=== PATIENT | female | born 1955 | race Caucasian/White ===

== ENCOUNTER 2023-10-20 12:51 | Emergency (ER) | payer OTHER, MEDICAID ==
[~2023-10-20] VITALS: Ht 160 cm; Wt 54.4 kg
[2023-10-20 14:37] LABS: EOSINOPHILS # (AUTO) 0.1 K/uL (0.0-0.4); HEMATOCRIT 30.1 % (36-48); HEMOGLOBIN 10.1 g/dL (12.0-16.0); LYMPHOCYTES # (AUTO) 0.5 K/uL (1.0-5.5); LYMPHOCYTES % (AUTO) 12.7 % (20.5-51.5); MEAN CORPUSCULAR HEMOGLOBIN 34 pg (27-31); MEAN CORPUSCULAR HGB CONC 33 % (32-36); MEAN CORPUSCULAR VOLUME 101 fL (79.0-98.0); MONOCYTES # (AUTO) 0.4 K/uL (0.0-1.0); MONOCYTES % (AUTO) 9.8 % (1.7-9.3); NEUTROPHILS % (AUTO) 74.5 % (40.0-70.0); PLATELET COUNT (AUTO) 225 K/uL (130-430); RED BLOOD CELL COUNT(AUTO) 2.98 MIL/uL (4.2-6.2); RED CELL DISTRIBUTION WIDTH 16.3 % (9.0-15.0)
[2023-10-20 14:56] LABS: INR 1.1 (0.8-1.2); PROTHROMBIN TIME 11.6 SECS (9.5-12.5)
[2023-10-20 15:04] LABS: ALANINE AMINOTRANSFERASE 8 U/L (12-78); ALBUMIN 2.3 g/dL (3.4-4.8); ANION GAP 3 (5-15); ASPARTATE AMINOTRANSFERASE 17 U/L (10-37); BILIRUBIN,DIRECT 0.4 mg/dL (0.0-0.3); CALCIUM 7.9 mg/dL (8.4-11.0); CARBON DIOXIDE 36 mmol/L (23-29); CHLORIDE 97 mmol/L (98-107); CREATININE 2.47 mg/dL (0.55-1.30); GFR AFRICAN AMERICAN 25 mL/min (>90); GFR NON AFRICAN-AMERICAN 21 mL/min (>90); GLUCOSE 116 mg/dL (74-106); POTASSIUM 3.2 mmol/L (3.5-5.1); SODIUM SERUM 136 mmol/L (136-145); TOTAL BILIRUBIN 0.7 mg/dL (0.0-1.0); TOTAL PROTEIN, SERUM 5.9 g/dL (6.4-8.3); UREA NITROGEN, BLOOD 9 mg/dL (8-21)
[2023-10-20] MEDS ORDERED: PANTOPRAZOLE SODIUM 40 MG/VIAL (PROTONIX) IVP ONE (15:15)
[2023-10-20 15:20] VITALS: BP_SYST 162; PULSE 85; RESP 18; TEMP 97.9; O2SAT 95
== END 2023-10-20 15:27 | disposition home or self-care (01) ==
LOC: SED 12:51
DX: R60.0 Localized edema (principal); I10 Essential (primary) hypertension; E11.9 Type 2 diabetes mellitus without complications; I48.91 Unspecified atrial fibrillation
CPT/HCPCS: 36415; 71045; 80048; 80076; 83880; 84484; 85025; 85610-TC; 85730-TC; 93005; 99285

== ENCOUNTER 2024-01-20 12:16 | Inpatient (IN) | payer OTHER, MEDICAID ==
[~2024-01-20] VITALS: Ht 170.2 cm; Wt 69.4 kg
[2024-01-20 12:20] VITALS: BP_SYST 117; PULSE 65; RESP 19; TEMP 98; O2SAT 98
[2024-01-20 12:49] LABS: BASOPHILS % (AUTO) 0.2 % (0.0-2.0); EOSINOPHILS % (AUTO) 0.5 % (0.0-4.0); HEMATOCRIT 22.4 % (36-48); HEMOGLOBIN 7.7 g/dL (12.0-16.0); LYMPHOCYTES # (AUTO) 0.2 K/uL (1.0-5.5); LYMPHOCYTES % (AUTO) 2.9 % (20.5-51.5); MEAN CORPUSCULAR HEMOGLOBIN 36 pg (27-31); MEAN CORPUSCULAR HGB CONC 35 % (32-36); MEAN CORPUSCULAR VOLUME 104 fL (79.0-98.0); MONOCYTES # (AUTO) 0.5 K/uL (0.0-1.0); NEUTROPHILS # (AUTO) 6.4 K/uL (1.8-7.7); NEUTROPHILS % (AUTO) 89.4 % (40.0-70.0); PLATELET COUNT (AUTO) 177 K/uL (130-430); RED BLOOD CELL COUNT(AUTO) 2.16 MIL/uL (4.2-6.2); RED CELL DISTRIBUTION WIDTH 19.7 % (9.0-15.0); WHITE BLOOD COUNT (AUTO) 7.1 K/uL (4.8-10.8)
[2024-01-20 13:05] LABS: ANION GAP 4 (5-15); CALCIUM 7.4 mg/dL (8.4-11.0); CARBON DIOXIDE 33 mmol/L (23-29); CHLORIDE 93 mmol/L (98-107); GFR AFRICAN AMERICAN 23 mL/min (>90); GLUCOSE 82 mg/dL (74-106); POTASSIUM 3.5 mmol/L (3.5-5.1); SODIUM SERUM 130 mmol/L (136-145); UREA NITROGEN, BLOOD 28 mg/dL (8-21)
[2024-01-20 13:09] LABS: GFR NON AFRICAN-AMERICAN 19 mL/min (>90)
[2024-01-20] MEDS: NITROGLYCERIN 1 INCH (GM) OINT. TP ONE (13:45)
[2024-01-20] MEDS ORDERED: LEVO150C4 PO (13:46)
[2024-01-20] MEDS ORDERED: OMEP-268 PO (13:46)
[2024-01-20] MEDS ORDERED: APIX2.5T PO (13:46)
[2024-01-20] MEDS ORDERED: PRO40 PO (13:46)
[2024-01-20] MEDS ORDERED: FURO40TA5 PO (13:46)
[2024-01-20] MEDS ORDERED: CALC667T8 PO (13:46)
[2024-01-20] MEDS ORDERED: DRISDOL PO (13:46)
[2024-01-20] MEDS ORDERED: FOLI0.8T2 PO (13:46)
[2024-01-20] MEDS ORDERED: LOSA-415 PO (13:46)
[2024-01-20] MEDS ORDERED: ALBMDI INH (13:46)
[2024-01-20] MEDS: FUROSEMIDE 40 MG/4 ML VIAL IVP ONE (13:46)
[2024-01-20] MEDS ORDERED: [UNRECOGNIZED DRUG - CODE] PO (13:46)
[2024-01-20] MEDS ORDERED: AZAT50TA18 PO (13:46)
[2024-01-20] MEDS ORDERED: DOCU-159 PO (13:46)
[2024-01-20] MEDS ORDERED: CLON0.1T PO (13:47)
[2024-01-20] MEDS ORDERED: HEPA100D33 IV ×2 (13:47)
[2024-01-20] MEDS ORDERED: EPOE3000 IV (13:47)
[2024-01-20] MEDS ORDERED: MOME13HF8 INH (13:47)
[2024-01-20] MEDS ORDERED: HYDR-500 PO (13:47)
[2024-01-20] MEDS ORDERED: PIPERACILLIN/TAZOBACTAM 3.375 GM/VIAL (ZOSYN) IV ONE (14:27)
[2024-01-20] MEDS: PIPERACILLIN/TAZO 3.375 GM in NS 50 ML IV ONE (15:29)
[2024-01-20] MEDS: cefTRIAXone 1 GM IVPB PREMIX 50 ML IV ONE (16:12)
[2024-01-20 17:33] VITALS: BP_SYST 133; PULSE 61; RESP 18; TEMP 98
[2024-01-20] MEDS ORDERED: cloNIDine HCL 0.1 MG TABLET PO PRN (19:15)
[2024-01-20 20:00] VITALS: BP_SYST 137; PULSE 64; RESP 16; TEMP 97.3; O2SAT 98
[2024-01-20] MEDS: DOCUSATE SODIUM 100 MG CAPSULE PO SCH (21:44)
[2024-01-20] MEDS: ACETAMINOPHEN 325 MG TABLET PO PRN (22:42)
[2024-01-21] VITALS (7 sets, daily range): BP systolic 130–158; PULSE 61–97; RESP 15–20; TEMP 97–97.7; O2SAT 96–100
[2024-01-21 05:37] LABS: BASOPHILS % (AUTO) 0.3 % (0.0-2.0); EOSINOPHILS % (AUTO) 0.3 % (0.0-4.0); HEMATOCRIT 26.6 % (36-48); HEMOGLOBIN 9.3 g/dL (12.0-16.0); LYMPHOCYTES # (AUTO) 0.3 K/uL (1.0-5.5); LYMPHOCYTES % (AUTO) 4.4 % (20.5-51.5); MEAN CORPUSCULAR HEMOGLOBIN 34 pg (27-31); MEAN CORPUSCULAR HGB CONC 35 % (32-36); MEAN CORPUSCULAR VOLUME 96 fL (79.0-98.0); MONOCYTES # (AUTO) 0.6 K/uL (0.0-1.0); MONOCYTES % (AUTO) 8.9 % (1.7-9.3); NEUTROPHILS % (AUTO) 86.1 % (40.0-70.0); PLATELET COUNT (AUTO) 165 K/uL (130-430); RED BLOOD CELL COUNT(AUTO) 2.77 MIL/uL (4.2-6.2); RED CELL DISTRIBUTION WIDTH 23.8 % (9.0-15.0); WHITE BLOOD COUNT (AUTO) 6.9 K/uL (4.8-10.8)
[2024-01-21 05:48] LABS: CALCIUM 7.3 mg/dL (8.4-11.0); CREATININE 2.03 mg/dL (0.55-1.30); POTASSIUM 3.4 mmol/L (3.5-5.1)
[2024-01-21 05:54] LABS: ALBUMIN 1.5 g/dL (3.4-4.8); PHOSPHORUS 1.6 mg/dL (2.7-4.5); TOTAL BILIRUBIN 1.2 mg/dL (0.0-1.0); TOTAL PROTEIN, SERUM 5.5 g/dL (6.4-8.3)
[2024-01-21] MEDS: LEVOTHYROXINE SODIUM 0.15 MG TABLET PO SCH (07:10)
[2024-01-21] MEDS: LOSARTAN POTASSIUM 50 MG TABLET (COZAAR) PO SCH (08:35)
[2024-01-21] MEDS: PANTOPRAZOLE SODIUM 40 MG TAB PO SCH (08:36)
[2024-01-21] MEDS: CALCIUM ACETATE 667 MG CAP PO SCH ×2 (08:37→17:47)
[2024-01-21] MEDS: FUROSEMIDE 40 MG TABLET PO SCH (08:37)
[2024-01-21] MEDS: NEPHROVITE, (FOLIC ACID/VITAMIN B COMP W-C 1 TAB) PO SCH (08:38)
[2024-01-21] MEDS: cefTRIAXone 1 GM IVPB PREMIX 50 ML IV SCH (08:39)
[2024-01-21] MEDS: APIXABAN 2.5 MG TABLET PO SCH (08:46)
[2024-01-21] MEDS ORDERED: NON-FORMULARY MEDICATION (Omeprazole 1 CAP) PO SCH (09:00)
[2024-01-21] MEDS: ONDANSETRON HCL 4 MG/2 ML VIAL IM PRN (11:23)
[2024-01-21] MEDS: LABETALOL HCL 100 MG TABLET PO SCH (15:25)
[2024-01-21] MEDS: LINEZOLID 300 ML IV SCH (21:21)
[2024-01-22] VITALS (8 sets, daily range): BP systolic 103–153; PULSE 51–60; RESP 16–20; TEMP 96.2–97.9; O2SAT 96–100
[2024-01-22 04:44] LABS: INR 1.4 (0.8-1.2); PROTHROMBIN TIME 14.4 SECS (9.5-12.5)
[2024-01-22 05:18] LABS: BASOPHILS % (AUTO) 0.5 % (0.0-2.0); EOSINOPHILS % (AUTO) 0.6 % (0.0-4.0); HEMATOCRIT 25.1 % (36-48); HEMOGLOBIN 8.5 g/dL (12.0-16.0); LYMPHOCYTES # (AUTO) 0.4 K/uL (1.0-5.5); LYMPHOCYTES % (AUTO) 7.2 % (20.5-51.5); MEAN CORPUSCULAR HEMOGLOBIN 33 pg (27-31); MEAN CORPUSCULAR HGB CONC 34 % (32-36); MEAN CORPUSCULAR VOLUME 97 fL (79.0-98.0); MONOCYTES # (AUTO) 0.6 K/uL (0.0-1.0); NEUTROPHILS # (AUTO) 4.1 K/uL (1.8-7.7); NEUTROPHILS % (AUTO) 80.7 % (40.0-70.0); PLATELET COUNT (AUTO) 158 K/uL (130-430); RED BLOOD CELL COUNT(AUTO) 2.58 MIL/uL (4.2-6.2); RED CELL DISTRIBUTION WIDTH 23.8 % (9.0-15.0); WHITE BLOOD COUNT (AUTO) 5.1 K/uL (4.8-10.8)
[2024-01-22 05:41] LABS: ALBUMIN 1.5 g/dL (3.4-4.8); CALCIUM 7.7 mg/dL (8.4-11.0); CREATININE 2.78 mg/dL (0.55-1.30); FREE T4 (FREE THYROXINE) 0.8 ng/dL (0.6-1.6); POTASSIUM 3.6 mmol/L (3.5-5.1); THYROID STIMULATING HORMONE 7.79 uIu/mL (0.34-4.82); TOTAL BILIRUBIN 0.9 mg/dL (0.0-1.0); TOTAL PROTEIN, SERUM 5.2 g/dL (6.4-8.3)
[2024-01-22] MEDS: IPRATROPIUM/ALBUTEROL SULFATE 3 ML AMPUL.NEB (DUONEB) INH SCH (15:42)
[2024-01-22] MEDS: BUDESONIDE 0.5 MG/2 ML AMPUL.NEB INH SCH (19:00)
[2024-01-23] VITALS (11 sets, daily range): BP systolic 123–156; PULSE 51–62; RESP 16–19; TEMP 97.5–98.2; O2SAT 98–100
[2024-01-23 04:18] LABS: BASOPHILS % (AUTO) 0.5 % (0.0-2.0); EOSINOPHILS % (AUTO) 0.7 % (0.0-4.0); HEMATOCRIT 25.7 % (36-48); HEMOGLOBIN 8.9 g/dL (12.0-16.0); LYMPHOCYTES # (AUTO) 0.3 K/uL (1.0-5.5); LYMPHOCYTES % (AUTO) 5.8 % (20.5-51.5); MEAN CORPUSCULAR HEMOGLOBIN 34 pg (27-31); MEAN CORPUSCULAR HGB CONC 35 % (32-36); MEAN CORPUSCULAR VOLUME 97 fL (79.0-98.0); MONOCYTES # (AUTO) 0.5 K/uL (0.0-1.0); MONOCYTES % (AUTO) 8.3 % (1.7-9.3); NEUTROPHILS % (AUTO) 84.7 % (40.0-70.0); PLATELET COUNT (AUTO) 161 K/uL (130-430); RED BLOOD CELL COUNT(AUTO) 2.66 MIL/uL (4.2-6.2); RED CELL DISTRIBUTION WIDTH 22.8 % (9.0-15.0); WHITE BLOOD COUNT (AUTO) 5.9 K/uL (4.8-10.8)
[2024-01-23 04:49] LABS: ALBUMIN 1.5 g/dL (3.4-4.8); CREATININE 2.39 mg/dL (0.55-1.30); POTASSIUM 3.6 mmol/L (3.5-5.1); TOTAL BILIRUBIN 0.8 mg/dL (0.0-1.0); TOTAL PROTEIN, SERUM 5.4 g/dL (6.4-8.3)
[2024-01-23] MEDS: LABETALOL HCL 100 MG TABLET ONE (21:48)
[2024-01-24] VITALS (8 sets, daily range): BP systolic 108–140; PULSE 74–82; RESP 17–18; TEMP 96.6–98; O2SAT 97–99
[2024-01-24] MEDS ORDERED: AMPICILLIN SODIUM 2 GM in NS 100 ML IV SCH (12:00)
[2024-01-24] MEDS: AMPICILLIN SODIUM 2 GM in NS 100 ML IV SCH (18:24)
[2024-01-25] VITALS (11 sets, daily range): BP systolic 133–149; PULSE 82–113; RESP 16–18; TEMP 95.5–98; O2SAT 96–100
[2024-01-25] MEDS: LEVOTHYROXINE SODIUM 0.025 MG TABLET PO SCH (06:29)
[2024-01-25] MEDS: BENZOCAINE 20% 0.5mL UD SPRAY MM ONE (08:57)
[2024-01-25] MEDS: fentaNYL CITRATE/PF 100 MCG/2 ML AMP ONE (08:59)
[2024-01-25] MEDS: MIDAZOLAM HCL 5 MG/5 ML VIAL ONE (08:59)
[2024-01-26] VITALS (10 sets, daily range): BP systolic 126–146; PULSE 74–86; RESP 16–20; TEMP 97.7–98.7; O2SAT 96–100
[2024-01-26 07:07] LABS: HEMATOCRIT 27.7 % (36-48); HEMOGLOBIN 9.4 g/dL (12.0-16.0); MEAN CORPUSCULAR HEMOGLOBIN 34 pg (27-31); MEAN CORPUSCULAR HGB CONC 34 % (32-36); MEAN CORPUSCULAR VOLUME 99 fL (79.0-98.0); PLATELET COUNT (AUTO) 169 K/uL (130-430); RED BLOOD CELL COUNT(AUTO) 2.79 MIL/uL (4.2-6.2); RED CELL DISTRIBUTION WIDTH 23.5 % (9.0-15.0); WHITE BLOOD COUNT (AUTO) 5.4 K/uL (4.8-10.8)
[2024-01-26 07:37] LABS: ALBUMIN 1.5 g/dL (3.4-4.8); CALCIUM 8.7 mg/dL (8.4-11.0); CREATININE 3.02 mg/dL (0.55-1.30); POTASSIUM 4.6 mmol/L (3.5-5.1); TOTAL BILIRUBIN 0.9 mg/dL (0.0-1.0); TOTAL PROTEIN, SERUM 5.5 g/dL (6.4-8.3)
[2024-01-26 08:18] LABS: ANISOCYTOSIS 2+; BASOPHILS % (MANUAL) 0 % (0-2); EOSINOPHILS % (MANUAL) 1 % (0-7); LYMPHOCYTES % (MANUAL) 11 % (20-46); MONOCYTES % (MANUAL) 6 % (0-11); OVALOCYTES FEW; PLATELET ESTIMATE ADEQUATE (ADEQUATE); TEAR DROP CELLS FEW
[2024-01-26] MEDS: AMIODARONE HCL 200 MG TABLET PO ONE (11:32)
[2024-01-26] MEDS ORDERED: NALOXONE HCL 0.4 MG/ML AMP (NARCAN) IVP PRN (13:30)
[2024-01-26] MEDS: MORPHINE 2 MG/ML INJ. SYRINGE IVP PRN (13:39)
[2024-01-26] MEDS: NACL 0.9% 1,000 ML IV ONE (20:30)
[2024-01-26] MEDS: BUDESONIDE 0.5 MG/2 ML AMPUL.NEB INH PRN (22:22)
[2024-01-26] MEDS: AMIODARONE HCL 200 MG TABLET PO SCH (22:26)
[2024-01-27] VITALS (11 sets, daily range): BP systolic 102–140; PULSE 78–93; RESP 16–18; TEMP 97.2–98.5; O2SAT 96–99
[2024-01-27] MEDS: CALCIUM CARBONATE 500 MG/ TAB.CHEW PO SCH (08:02)
[2024-01-27] MEDS: VITAMIN D2 50000 UNIT PO SCH (09:00)
[2024-01-27] MEDS: POLYETHYLENE GLYCOL 3350, 17 GM/ POWD.PACK PO SCH (09:00)
[2024-01-27] MEDS: SIMETHICONE 80 MG TAB.CHEW PO SCH (09:56)
[2024-01-27] MEDS ORDERED: PHO667 PO (18:21)
[2024-01-28] VITALS (10 sets, daily range): BP systolic 132–164; PULSE 68–89; RESP 16–18; TEMP 96.8–99.2; O2SAT 96–100
[2024-01-28 05:31] LABS: BASOPHILS % (AUTO) 0.5 % (0.0-2.0); EOSINOPHILS # (AUTO) 0.1 K/uL (0.0-0.4); EOSINOPHILS % (AUTO) 2.1 % (0.0-4.0); HEMATOCRIT 26.7 % (36-48); LYMPHOCYTES # (AUTO) 0.4 K/uL (1.0-5.5); LYMPHOCYTES % (AUTO) 6.9 % (20.5-51.5); MEAN CORPUSCULAR HEMOGLOBIN 34 pg (27-31); MEAN CORPUSCULAR HGB CONC 34 % (32-36); MEAN CORPUSCULAR VOLUME 100 fL (79.0-98.0); MONOCYTES # (AUTO) 0.3 K/uL (0.0-1.0); MONOCYTES % (AUTO) 5.8 % (1.7-9.3); NEUTROPHILS # (AUTO) 4.7 K/uL (1.8-7.7); NEUTROPHILS % (AUTO) 84.7 % (40.0-70.0); PLATELET COUNT (AUTO) 152 K/uL (130-430); RED BLOOD CELL COUNT(AUTO) 2.68 MIL/uL (4.2-6.2); RED CELL DISTRIBUTION WIDTH 23.3 % (9.0-15.0); WHITE BLOOD COUNT (AUTO) 5.6 K/uL (4.8-10.8)
[2024-01-28 06:32] LABS: ALBUMIN 1.5 g/dL (3.4-4.8); CALCIUM 9.3 mg/dL (8.4-11.0); CREATININE 2.95 mg/dL (0.55-1.30); POTASSIUM 4.7 mmol/L (3.5-5.1); TOTAL BILIRUBIN 0.9 mg/dL (0.0-1.0); TOTAL PROTEIN, SERUM 5.7 g/dL (6.4-8.3)
[2024-01-28] MEDS ORDERED: LEVOTHYROXINE SODIUM 0.025 MG TABLET PO SCH (07:00)
[2024-01-28 07:28] LABS: FREE T4 (FREE THYROXINE) 0.7 ng/dL (0.6-1.6); THYROID STIMULATING HORMONE 20.22 uIu/mL (0.34-4.82)
[2024-01-28] MEDS: LEVOTHYROXINE SODIUM 0.15 MG TABLET PO SCH (08:32)
[2024-01-28] MEDS ORDERED: POTASSIUM CHLORIDE 40 MEQ in D5W 250 ML IV ONE (11:00)
[2024-01-29] VITALS (8 sets, daily range): BP systolic 134–149; PULSE 68–84; RESP 16–18; TEMP 96.8–97.9; O2SAT 93–98
[2024-01-29 05:19] LABS: BASOPHILS % (AUTO) 0.5 % (0.0-2.0); EOSINOPHILS # (AUTO) 0.1 K/uL (0.0-0.4); EOSINOPHILS % (AUTO) 1.4 % (0.0-4.0); HEMATOCRIT 27.7 % (36-48); HEMOGLOBIN 9.4 g/dL (12.0-16.0); LYMPHOCYTES # (AUTO) 0.3 K/uL (1.0-5.5); LYMPHOCYTES % (AUTO) 4.9 % (20.5-51.5); MEAN CORPUSCULAR HEMOGLOBIN 34 pg (27-31); MEAN CORPUSCULAR HGB CONC 34 % (32-36); MEAN CORPUSCULAR VOLUME 100 fL (79.0-98.0); MONOCYTES # (AUTO) 0.5 K/uL (0.0-1.0); MONOCYTES % (AUTO) 7.1 % (1.7-9.3); NEUTROPHILS # (AUTO) 5.6 K/uL (1.8-7.7); NEUTROPHILS % (AUTO) 86.1 % (40.0-70.0); PLATELET COUNT (AUTO) 151 K/uL (130-430); RED BLOOD CELL COUNT(AUTO) 2.78 MIL/uL (4.2-6.2); RED CELL DISTRIBUTION WIDTH 23.1 % (9.0-15.0); WHITE BLOOD COUNT (AUTO) 6.5 K/uL (4.8-10.8)
[2024-01-29 05:55] LABS: CALCIUM 9.3 mg/dL (8.4-11.0); CREATININE 2.31 mg/dL (0.55-1.30); POTASSIUM 4.2 mmol/L (3.5-5.1)
[2024-01-29 06:00] LABS: TOTAL IRON BIND. CAPACITY 81 ug/dL (250-450)
[2024-01-29] MEDS: cefTRIAXone 1 GM in D5W 50 ML IV SCH (12:00)
[2024-01-30] VITALS (10 sets, daily range): BP systolic 104–157; PULSE 69–84; RESP 14–20; TEMP 96–98; O2SAT 95–98
[2024-01-30] MEDS: AMPICILLIN SODIUM 1 GM in NS 50 ML IV SCH (11:17)
[2024-01-31] VITALS (7 sets, daily range): BP systolic 100–149; PULSE 60–79; RESP 16–18; TEMP 97.5–97.9; O2SAT 96–98
[2024-01-31 06:04] LABS: BASOPHILS % (AUTO) 0.3 % (0.0-2.0); EOSINOPHILS % (AUTO) 0.4 % (0.0-4.0); HEMOGLOBIN 9.1 g/dL (12.0-16.0); LYMPHOCYTES # (AUTO) 0.3 K/uL (1.0-5.5); LYMPHOCYTES % (AUTO) 3.6 % (20.5-51.5); MEAN CORPUSCULAR HEMOGLOBIN 34 pg (27-31); MEAN CORPUSCULAR HGB CONC 34 % (32-36); MEAN CORPUSCULAR VOLUME 100 fL (79.0-98.0); MONOCYTES # (AUTO) 0.4 K/uL (0.0-1.0); MONOCYTES % (AUTO) 5.6 % (1.7-9.3); NEUTROPHILS # (AUTO) 6.4 K/uL (1.8-7.7); NEUTROPHILS % (AUTO) 90.1 % (40.0-70.0); PLATELET COUNT (AUTO) 150 K/uL (130-430); WHITE BLOOD COUNT (AUTO) 7.1 K/uL (4.8-10.8)
[2024-01-31 06:16] LABS: ALBUMIN 1.5 g/dL (3.4-4.8); CALCIUM 10.1 mg/dL (8.4-11.0); CREATININE 3.65 mg/dL (0.55-1.30); POTASSIUM 4.6 mmol/L (3.5-5.1); TOTAL BILIRUBIN 0.8 mg/dL (0.0-1.0); TOTAL PROTEIN, SERUM 5.7 g/dL (6.4-8.3)
[2024-02-01] VITALS (11 sets, daily range): BP systolic 122–143; PULSE 62–86; RESP 16–18; TEMP 97.2–97.5; O2SAT 96–99
[2024-02-01] MEDS: LR 1,000 ML IV SCH (21:36)
[2024-02-02] VITALS (11 sets, daily range): BP systolic 114–126; PULSE 73–89; RESP 14–18; TEMP 97.3–97.9; O2SAT 96–99
[2024-02-02 06:30] LABS: BASOPHILS % (AUTO) 0.5 % (0.0-2.0); EOSINOPHILS # (AUTO) 0.1 K/uL (0.0-0.4); EOSINOPHILS % (AUTO) 1.4 % (0.0-4.0); HEMATOCRIT 24.6 % (36-48); HEMOGLOBIN 8.4 g/dL (12.0-16.0); LYMPHOCYTES # (AUTO) 0.3 K/uL (1.0-5.5); LYMPHOCYTES % (AUTO) 3.9 % (20.5-51.5); MEAN CORPUSCULAR HEMOGLOBIN 34 pg (27-31); MEAN CORPUSCULAR HGB CONC 34 % (32-36); MEAN CORPUSCULAR VOLUME 100 fL (79.0-98.0); MONOCYTES # (AUTO) 0.4 K/uL (0.0-1.0); MONOCYTES % (AUTO) 6.6 % (1.7-9.3); NEUTROPHILS % (AUTO) 87.6 % (40.0-70.0); PLATELET COUNT (AUTO) 117 K/uL (130-430); RED BLOOD CELL COUNT(AUTO) 2.46 MIL/uL (4.2-6.2); RED CELL DISTRIBUTION WIDTH 23.4 % (9.0-15.0); WHITE BLOOD COUNT (AUTO) 6.9 K/uL (4.8-10.8)
[2024-02-02 07:09] LABS: ALBUMIN 1.3 g/dL (3.4-4.8); CALCIUM 9.8 mg/dL (8.4-11.0); CREATININE 3.4 mg/dL (0.55-1.30); POTASSIUM 4.9 mmol/L (3.5-5.1); TOTAL BILIRUBIN 0.6 mg/dL (0.0-1.0); TOTAL PROTEIN, SERUM 5.1 g/dL (6.4-8.3)
[2024-02-02] MEDS ORDERED: NALOXONE HCL 0.4 MG/ML AMP (NARCAN) IVP PRN (14:15)
[2024-02-02] MEDS: LIPASE/PROTEASE/AMYLASE 1 CAP PO SCH (18:19)
[2024-02-03] VITALS (7 sets, daily range): BP systolic 114–141; PULSE 69–83; RESP 14–18; TEMP 96.9–97.8; O2SAT 97–100
[2024-02-03 07:18] LABS: BASOPHILS % (AUTO) 0.6 % (0.0-2.0); EOSINOPHILS # (AUTO) 0.2 K/uL (0.0-0.4); EOSINOPHILS % (AUTO) 2.3 % (0.0-4.0); HEMATOCRIT 25.8 % (36-48); HEMOGLOBIN 8.7 g/dL (12.0-16.0); LYMPHOCYTES # (AUTO) 0.2 K/uL (1.0-5.5); LYMPHOCYTES % (AUTO) 3.5 % (20.5-51.5); MEAN CORPUSCULAR HEMOGLOBIN 34 pg (27-31); MEAN CORPUSCULAR HGB CONC 34 % (32-36); MEAN CORPUSCULAR VOLUME 101 fL (79.0-98.0); MONOCYTES # (AUTO) 0.5 K/uL (0.0-1.0); MONOCYTES % (AUTO) 6.9 % (1.7-9.3); NEUTROPHILS # (AUTO) 5.7 K/uL (1.8-7.7); NEUTROPHILS % (AUTO) 86.7 % (40.0-70.0); PLATELET COUNT (AUTO) 119 K/uL (130-430); RED BLOOD CELL COUNT(AUTO) 2.55 MIL/uL (4.2-6.2); RED CELL DISTRIBUTION WIDTH 23.3 % (9.0-15.0); WHITE BLOOD COUNT (AUTO) 6.6 K/uL (4.8-10.8)
[2024-02-03 07:52] LABS: CALCIUM 9.4 mg/dL (8.4-11.0); CREATININE 2.57 mg/dL (0.55-1.30); POTASSIUM 4.6 mmol/L (3.5-5.1)
[2024-02-03] MEDS: DEXTROSE 50% JECT 50 ML DISP.SYRIN ONE ×3 (08:17→18:35)
[2024-02-03] MEDS: D10W 250 ML IV SCH (14:25)
[2024-02-03] MEDS: ERGOCALCIFEROL 8000 UNITS/ML ORAL SOLUTION, 60 ML BOTTLE PO ONE (15:47)
[2024-02-03] MEDS: DEXTROSE 50% JECT 50 ML DISP.SYRIN IVP PRN (18:32)
[2024-02-03] MEDS: DILTIAZEM HCL 120 MG CAP.SR.24H PO SCH (21:10)
[2024-02-03] MEDS: ZOLPIDEM TARTRATE 5 MG TABLET PO PRN (21:39)
[2024-02-04] VITALS (11 sets, daily range): BP systolic 107–142; PULSE 80–94; RESP 16–18; TEMP 96.8–98.7; O2SAT 80–100
[2024-02-04 08:03] LABS: BASOPHILS % (AUTO) 0.2 % (0.0-2.0); EOSINOPHILS # (AUTO) 0.2 K/uL (0.0-0.4); EOSINOPHILS % (AUTO) 3.2 % (0.0-4.0); HEMATOCRIT 25.4 % (36-48); HEMOGLOBIN 8.6 g/dL (12.0-16.0); LYMPHOCYTES # (AUTO) 0.3 K/uL (1.0-5.5); LYMPHOCYTES % (AUTO) 3.8 % (20.5-51.5); MEAN CORPUSCULAR HEMOGLOBIN 34 pg (27-31); MEAN CORPUSCULAR HGB CONC 34 % (32-36); MEAN CORPUSCULAR VOLUME 101 fL (79.0-98.0); MONOCYTES # (AUTO) 0.5 K/uL (0.0-1.0); MONOCYTES % (AUTO) 7.6 % (1.7-9.3); NEUTROPHILS % (AUTO) 85.2 % (40.0-70.0); PLATELET COUNT (AUTO) 131 K/uL (130-430); RED BLOOD CELL COUNT(AUTO) 2.51 MIL/uL (4.2-6.2); RED CELL DISTRIBUTION WIDTH 23.6 % (9.0-15.0)
[2024-02-04 08:10] LABS: INR 1.3 (0.8-1.2); PROTHROMBIN TIME 13.5 SECS (9.5-12.5)
[2024-02-04 08:13] LABS: ALBUMIN 1.2 g/dL (3.4-4.8); CALCIUM 10.1 mg/dL (8.4-11.0); CREATININE 3.04 mg/dL (0.55-1.30); POTASSIUM 4.7 mmol/L (3.5-5.1); TOTAL BILIRUBIN 0.6 mg/dL (0.0-1.0); TOTAL PROTEIN, SERUM 4.9 g/dL (6.4-8.3)
[2024-02-04] MEDS: fentaNYL CITRATE/PF 100 MCG/2 ML AMP ONE (10:31)
[2024-02-04] MEDS: MIDAZOLAM HCL 5 MG/5 ML VIAL ONE (10:31)
[2024-02-05] VITALS (9 sets, daily range): BP systolic 110–115; PULSE 65–88; RESP 18–20; TEMP 97.6–98.5; O2SAT 96–100
[2024-02-05 04:51] LABS: BASOPHILS % (AUTO) 0.4 % (0.0-2.0); EOSINOPHILS # (AUTO) 0.1 K/uL (0.0-0.4); HEMATOCRIT 23.5 % (36-48); HEMOGLOBIN 8.1 g/dL (12.0-16.0); LYMPHOCYTES # (AUTO) 0.3 K/uL (1.0-5.5); LYMPHOCYTES % (AUTO) 3.7 % (20.5-51.5); MEAN CORPUSCULAR HEMOGLOBIN 34 pg (27-31); MEAN CORPUSCULAR HGB CONC 35 % (32-36); MEAN CORPUSCULAR VOLUME 100 fL (79.0-98.0); MONOCYTES # (AUTO) 0.6 K/uL (0.0-1.0); MONOCYTES % (AUTO) 8.1 % (1.7-9.3); NEUTROPHILS # (AUTO) 6.5 K/uL (1.8-7.7); NEUTROPHILS % (AUTO) 85.8 % (40.0-70.0); PLATELET COUNT (AUTO) 144 K/uL (130-430); RED BLOOD CELL COUNT(AUTO) 2.36 MIL/uL (4.2-6.2); RED CELL DISTRIBUTION WIDTH 22.7 % (9.0-15.0); WHITE BLOOD COUNT (AUTO) 7.5 K/uL (4.8-10.8)
[2024-02-05 05:05] LABS: CALCIUM 9.3 mg/dL (8.4-11.0); CREATININE 2.24 mg/dL (0.55-1.30); POTASSIUM 3.8 mmol/L (3.5-5.1)
[2024-02-06] VITALS (23 sets, daily range): BP systolic 93–161; PULSE 50–82; RESP 15–31; TEMP 95.7–98.8; O2SAT 18–99
[2024-02-06] MEDS: ATROPINE SULFATE 1 MG/10 ML SYRINGE IVP ONE (10:00)
[2024-02-06] MEDS: VANCOMYCIN HCL 500 MG in NS 100 ML IV SCH (14:32)
[2024-02-06] MEDS: ACETAMINOPHEN/CODEINE 300 MG-30 MG TABLET PO PRN (22:16)
[2024-02-07] VITALS (22 sets, daily range): BP systolic 119–159; PULSE 60–81; RESP 15–21; TEMP 97.5–98.1; O2SAT 95–99
[2024-02-07 05:41] LABS: HEMOGLOBIN 7.4 g/dL (12.0-16.0); MEAN CORPUSCULAR HEMOGLOBIN 35 pg (27-31); MEAN CORPUSCULAR HGB CONC 35 % (32-36); MEAN CORPUSCULAR VOLUME 100 fL (79.0-98.0); PLATELET COUNT (AUTO) 161 K/uL (130-430); RED BLOOD CELL COUNT(AUTO) 2.13 MIL/uL (4.2-6.2); RED CELL DISTRIBUTION WIDTH 22.9 % (9.0-15.0); WHITE BLOOD COUNT (AUTO) 6.5 K/uL (4.8-10.8)
[2024-02-07 06:17] LABS: ALANINE AMINOTRANSFERASE 7 U/L (12-78); ALBUMIN 1.1 g/dL (3.4-4.8); ANION GAP 5 (5-15); ASPARTATE AMINOTRANSFERASE < 5 U/L (10-37); CALCIUM 9.8 mg/dL (8.4-11.0); CARBON DIOXIDE 27 mmol/L (23-29); CHLORIDE 92 mmol/L (98-107); CREATININE 3.05 mg/dL (0.55-1.30); GFR AFRICAN AMERICAN 20 mL/min (>90); GLUCOSE 78 mg/dL (74-106); POTASSIUM 4.3 mmol/L (3.5-5.1); SODIUM SERUM 124 mmol/L (136-145); TOTAL BILIRUBIN 0.6 mg/dL (0.0-1.0); TOTAL PROTEIN, SERUM 4.9 g/dL (6.4-8.3); UREA NITROGEN, BLOOD 51 mg/dL (8-21)
[2024-02-07 06:38] LABS: GFR NON AFRICAN-AMERICAN 16 mL/min (>90)
[2024-02-07 07:38] LABS: HEMATOCRIT 21.2 % (36-48)
[2024-02-07 13:51] LABS: BAND % (MANUAL) 2 % (0-6); BASOPHILS % (MANUAL) 0 % (0-2); EOSINOPHILS % (MANUAL) 3 % (0-7); LYMPHOCYTES % (MANUAL) 3 % (20-46); MONOCYTES % (MANUAL) 4 % (0-11)
[2024-02-07 13:52] LABS: PLATELET ESTIMATE ADEQUATE (ADEQUATE)
[2024-02-07 13:53] LABS: ANISOCYTOSIS 2+
[2024-02-08] VITALS (9 sets, daily range): BP systolic 128–162; PULSE 74–84; RESP 18–28; TEMP 97.9–98.8; O2SAT 94–100
[2024-02-08 05:13] LABS: BASOPHILS % (AUTO) 0.3 % (0.0-2.0); EOSINOPHILS # (AUTO) 0.2 K/uL (0.0-0.4); EOSINOPHILS % (AUTO) 3.3 % (0.0-4.0); HEMATOCRIT 23.5 % (36-48); HEMOGLOBIN 8.2 g/dL (12.0-16.0); LYMPHOCYTES # (AUTO) 0.3 K/uL (1.0-5.5); MEAN CORPUSCULAR HEMOGLOBIN 34 pg (27-31); MEAN CORPUSCULAR HGB CONC 35 % (32-36); MEAN CORPUSCULAR VOLUME 97 fL (79.0-98.0); MONOCYTES # (AUTO) 0.5 K/uL (0.0-1.0); MONOCYTES % (AUTO) 8.9 % (1.7-9.3); NEUTROPHILS # (AUTO) 4.5 K/uL (1.8-7.7); NEUTROPHILS % (AUTO) 82.5 % (40.0-70.0); PLATELET COUNT (AUTO) 153 K/uL (130-430); RED BLOOD CELL COUNT(AUTO) 2.42 MIL/uL (4.2-6.2); WHITE BLOOD COUNT (AUTO) 5.4 K/uL (4.8-10.8)
[2024-02-08 05:50] LABS: CALCIUM 9.4 mg/dL (8.4-11.0); CREATININE 2.44 mg/dL (0.55-1.30); VANCOMYCIN,TROUGH 10.1 ug/mL (10.0-20.0)
[2024-02-08 08:06] LABS: CORTISOL (SERUM) 17.1 ug/dL (6.2-19.4); T4 (THYROXINE) 3.4 ug/dL (4.5-12.0)
[2024-02-08] MEDS: COMMUNICATION ORDER XX SCH (09:00)
[2024-02-08] MEDS: APIXABAN 2.5 MG TABLET PO SCH ×2 (09:22→10:21)
[2024-02-08] MEDS: AMPICILLIN SODIUM 1 GM in NS 50 ML IV SCH (14:11)
[2024-02-08] MEDS: ALBUMIN HUMAN 25% 100 ML IV ONE (15:09)
[2024-02-09] VITALS (8 sets, daily range): BP systolic 114–151; PULSE 69–90; RESP 16–18; TEMP 96.1–98; O2SAT 99–100
[2024-02-09] MEDS: D5NS 1,000 ML IV SCH (00:07)
[2024-02-09] MEDS: LEVOTHYROXINE SODIUM 0.1 MG TABLET PO SCH (06:23)
[2024-02-09 07:17] LABS: ALBUMIN 1.5 g/dL (3.4-4.8); CALCIUM 9.6 mg/dL (8.4-11.0); CREATININE 2.26 mg/dL (0.55-1.30); POTASSIUM 3.8 mmol/L (3.5-5.1); TOTAL BILIRUBIN 0.7 mg/dL (0.0-1.0); TOTAL PROTEIN, SERUM 4.9 g/dL (6.4-8.3)
[2024-02-09 07:27] LABS: BASOPHILS % (AUTO) 0.4 % (0.0-2.0); EOSINOPHILS # (AUTO) 0.2 K/uL (0.0-0.4); EOSINOPHILS % (AUTO) 3.4 % (0.0-4.0); HEMATOCRIT 23.3 % (36-48); HEMOGLOBIN 8.1 g/dL (12.0-16.0); LYMPHOCYTES # (AUTO) 0.2 K/uL (1.0-5.5); LYMPHOCYTES % (AUTO) 4.9 % (20.5-51.5); MEAN CORPUSCULAR HEMOGLOBIN 34 pg (27-31); MEAN CORPUSCULAR HGB CONC 35 % (32-36); MEAN CORPUSCULAR VOLUME 99 fL (79.0-98.0); MONOCYTES # (AUTO) 0.5 K/uL (0.0-1.0); MONOCYTES % (AUTO) 9.4 % (1.7-9.3); NEUTROPHILS # (AUTO) 4.1 K/uL (1.8-7.7); NEUTROPHILS % (AUTO) 81.9 % (40.0-70.0); PLATELET COUNT (AUTO) 134 K/uL (130-430); RED BLOOD CELL COUNT(AUTO) 2.36 MIL/uL (4.2-6.2)
[2024-02-09] MEDS: predniSONE 5 MG TABLET PO SCH (09:48)
[2024-02-09] MEDS: MIRTAZAPINE 15 MG TABLET PO SCH (21:49)
[2024-02-10] VITALS (10 sets, daily range): BP systolic 110–144; PULSE 65–98; RESP 17–19; TEMP 97.5–98.4; O2SAT 20–100
[2024-02-10] MEDS ORDERED: ERGOCALCIFEROL 8000 UNITS/ML ORAL SOLUTION, 60 ML BOTTLE PO SCH (09:00)
[2024-02-10] MEDS: DIPHENHYDRAMINE INJ 50 MG/ML VIAL IVP PRN (21:40)
[2024-02-11] VITALS (11 sets, daily range): BP systolic 110–161; PULSE 94–112; RESP 18–19; TEMP 96.7–98; O2SAT 96–100
[2024-02-11 05:36] LABS: BASOPHILS % (AUTO) 0.2 % (0.0-2.0); EOSINOPHILS # (AUTO) 0.1 K/uL (0.0-0.4); EOSINOPHILS % (AUTO) 2.7 % (0.0-4.0); HEMATOCRIT 22.6 % (36-48); HEMOGLOBIN 7.8 g/dL (12.0-16.0); LYMPHOCYTES # (AUTO) 0.3 K/uL (1.0-5.5); LYMPHOCYTES % (AUTO) 6.1 % (20.5-51.5); MEAN CORPUSCULAR HEMOGLOBIN 34 pg (27-31); MEAN CORPUSCULAR HGB CONC 35 % (32-36); MEAN CORPUSCULAR VOLUME 99 fL (79.0-98.0); MONOCYTES # (AUTO) 0.6 K/uL (0.0-1.0); MONOCYTES % (AUTO) 10.3 % (1.7-9.3); NEUTROPHILS # (AUTO) 4.4 K/uL (1.8-7.7); NEUTROPHILS % (AUTO) 80.7 % (40.0-70.0); PLATELET COUNT (AUTO) 169 K/uL (130-430); RED CELL DISTRIBUTION WIDTH 20.9 % (9.0-15.0); WHITE BLOOD COUNT (AUTO) 5.5 K/uL (4.8-10.8)
[2024-02-11 05:42] LABS: INR 1.2 (0.8-1.2); PROTHROMBIN TIME 12.6 SECS (9.5-12.5)
[2024-02-11 06:04] LABS: CALCIUM 10.1 mg/dL (8.4-11.0); CREATININE 3.01 mg/dL (0.55-1.30); POTASSIUM 4.6 mmol/L (3.5-5.1)
[2024-02-11 08:06] LABS: ACTH, PLASMA 22.2 pg/mL (7.2-63.3)
[2024-02-11] MEDS: MEGESTROL ACETATE 400 MG/10 ML UDC PO ONE (19:04)
[2024-02-11 22:06] LABS: QUANTIFERON TB GOLD Indeterminate (Negative)
[2024-02-12] VITALS (11 sets, daily range): BP systolic 101–158; PULSE 90–106; RESP 16–20; TEMP 96.2–99.4; O2SAT 91–100
[2024-02-12] MEDS: ACETAMINOPHEN 325 MG TABLET PO PRN (02:49)
[2024-02-12 05:21] LABS: BASOPHILS % (AUTO) 0.4 % (0.0-2.0); EOSINOPHILS # (AUTO) 0.1 K/uL (0.0-0.4); EOSINOPHILS % (AUTO) 1.3 % (0.0-4.0); HEMATOCRIT 28.8 % (36-48); HEMOGLOBIN 9.9 g/dL (12.0-16.0); LYMPHOCYTES # (AUTO) 0.3 K/uL (1.0-5.5); MEAN CORPUSCULAR HEMOGLOBIN 33 pg (27-31); MEAN CORPUSCULAR HGB CONC 34 % (32-36); MEAN CORPUSCULAR VOLUME 95 fL (79.0-98.0); MONOCYTES # (AUTO) 0.6 K/uL (0.0-1.0); MONOCYTES % (AUTO) 10.6 % (1.7-9.3); NEUTROPHILS # (AUTO) 4.7 K/uL (1.8-7.7); NEUTROPHILS % (AUTO) 81.7 % (40.0-70.0); PLATELET COUNT (AUTO) 167 K/uL (130-430); RED BLOOD CELL COUNT(AUTO) 3.02 MIL/uL (4.2-6.2); RED CELL DISTRIBUTION WIDTH 20.8 % (9.0-15.0); WHITE BLOOD COUNT (AUTO) 5.8 K/uL (4.8-10.8)
[2024-02-12 05:36] LABS: ALBUMIN 1.6 g/dL (3.4-4.8); CALCIUM 9.7 mg/dL (8.4-11.0); CREATININE 2.29 mg/dL (0.55-1.30); POTASSIUM 4.7 mmol/L (3.5-5.1); TOTAL BILIRUBIN 0.9 mg/dL (0.0-1.0); TOTAL PROTEIN, SERUM 5.5 g/dL (6.4-8.3)
[2024-02-12] MEDS: MEGESTROL ACETATE 400 MG/10 ML UDC PO SCH (09:00)
[2024-02-12] MEDS: TEMAZEPAM 7.5 MG CAPSULE PO PRN (22:55)
[2024-02-13] VITALS (10 sets, daily range): BP systolic 140–159; PULSE 95–110; RESP 17–20; TEMP 97.1–98.8; O2SAT 96–99
[2024-02-14] VITALS (7 sets, daily range): BP systolic 134–154; PULSE 70–116; RESP 18–21; TEMP 97.5–98.3; O2SAT 95–100
[2024-02-14 05:10] LABS: BASOPHILS % (AUTO) 0.3 % (0.0-2.0); EOSINOPHILS # (AUTO) 0.1 K/uL (0.0-0.4); EOSINOPHILS % (AUTO) 1.2 % (0.0-4.0); HEMATOCRIT 27.8 % (36-48); HEMOGLOBIN 9.5 g/dL (12.0-16.0); LYMPHOCYTES # (AUTO) 0.3 K/uL (1.0-5.5); MEAN CORPUSCULAR HEMOGLOBIN 33 pg (27-31); MEAN CORPUSCULAR HGB CONC 34 % (32-36); MEAN CORPUSCULAR VOLUME 96 fL (79.0-98.0); MONOCYTES # (AUTO) 0.7 K/uL (0.0-1.0); NEUTROPHILS # (AUTO) 5.8 K/uL (1.8-7.7); NEUTROPHILS % (AUTO) 83.5 % (40.0-70.0); PLATELET COUNT (AUTO) 148 K/uL (130-430); RED CELL DISTRIBUTION WIDTH 20.9 % (9.0-15.0); WHITE BLOOD COUNT (AUTO) 6.9 K/uL (4.8-10.8)
[2024-02-14 05:40] LABS: ALBUMIN 1.5 g/dL (3.4-4.8); CALCIUM 9.1 mg/dL (8.4-11.0); CREATININE 2.05 mg/dL (0.55-1.30); TOTAL BILIRUBIN 0.6 mg/dL (0.0-1.0); TOTAL PROTEIN, SERUM 5.6 g/dL (6.4-8.3)
[2024-02-14] MEDS ORDERED: MEGE400O45 PO (11:09)
[2024-02-14] MEDS ORDERED: PRED5TAB PO (11:16)
[2024-02-14] MEDS ORDERED: AMOX-520 PO (12:36)
== END 2024-02-14 14:55 | disposition home health service (06) | DRG 871 ==
LOC: SED 12:16 → STU 13:47 → SMU 02-03 12:34 → STU 02-05 13:57 → SIC 02-06 09:10 → STU 02-08 19:20
PROVIDERS: ADMIT Internal Medicine; ATTEND Internal Medicine
PROC: 30233N1 Transfusion of Nonautologous Red Blood Cells into Peripheral Vein, Percutaneous Approach (ICD-10-PCS; 2024-01-20)
PROC: 5A1D70Z Performance of Urinary Filtration, Intermittent, Less than 6 Hours Per Day (ICD-10-PCS; 2024-01-20)
PROC: 5A1D70Z Performance of Urinary Filtration, Intermittent, Less than 6 Hours Per Day (ICD-10-PCS; 2024-01-22)
PROC: B246ZZ4 Ultrasonography of Right and Left Heart, Transesophageal (ICD-10-PCS; 2024-01-23)
PROC: 5A1D70Z Performance of Urinary Filtration, Intermittent, Less than 6 Hours Per Day (ICD-10-PCS; 2024-01-24)
PROC: 5A1D70Z Performance of Urinary Filtration, Intermittent, Less than 6 Hours Per Day (ICD-10-PCS; 2024-01-26)
PROC: 5A1D70Z Performance of Urinary Filtration, Intermittent, Less than 6 Hours Per Day (ICD-10-PCS; 2024-01-28)
PROC: 5A1D70Z Performance of Urinary Filtration, Intermittent, Less than 6 Hours Per Day (ICD-10-PCS; 2024-01-31)
PROC: 5A1D70Z Performance of Urinary Filtration, Intermittent, Less than 6 Hours Per Day (ICD-10-PCS; 2024-02-02)
PROC: 0DB68ZX Excision of Stomach, Via Natural or Artificial Opening Endoscopic, Diagnostic (ICD-10-PCS; 2024-02-04)
PROC: 5A1D70Z Performance of Urinary Filtration, Intermittent, Less than 6 Hours Per Day (ICD-10-PCS; 2024-02-04)
PROC: 0D778ZZ Dilation of Stomach, Pylorus, Via Natural or Artificial Opening Endoscopic (ICD-10-PCS; principal; 2024-02-04 11:00)
PROC: 0DB98ZX Excision of Duodenum, Via Natural or Artificial Opening Endoscopic, Diagnostic (ICD-10-PCS; 2024-02-04 11:00)
PROC: 5A1D70Z Performance of Urinary Filtration, Intermittent, Less than 6 Hours Per Day (ICD-10-PCS; 2024-02-07)
PROC: 5A1D70Z Performance of Urinary Filtration, Intermittent, Less than 6 Hours Per Day (ICD-10-PCS; 2024-02-08)
PROC: 5A1D70Z Performance of Urinary Filtration, Intermittent, Less than 6 Hours Per Day (ICD-10-PCS; 2024-02-09)
PROC: 5A1D70Z Performance of Urinary Filtration, Intermittent, Less than 6 Hours Per Day (ICD-10-PCS; 2024-02-11)
PROC: 5A1D70Z Performance of Urinary Filtration, Intermittent, Less than 6 Hours Per Day (ICD-10-PCS; 2024-02-12)
PROC: 5A1D70Z Performance of Urinary Filtration, Intermittent, Less than 6 Hours Per Day (ICD-10-PCS; 2024-02-13)
DX: A41.81 Sepsis due to Enterococcus (principal); E43 Unspecified severe protein-calorie malnutrition; I50.43 Acute on chronic combined systolic (congestive) and diastolic (congestive) heart failure; J18.9 Pneumonia, unspecified organism; N18.6 End stage renal disease; K85.90 Acute pancreatitis without necrosis or infection, unspecified; E87.1 Hypo-osmolality and hyponatremia; I13.2 Hypertensive heart and chronic kidney disease with heart failure and with stage 5 chronic kidney disease, or end stage renal disease; J44.0 Chronic obstructive pulmonary disease with (acute) lower respiratory infection; K31.1 Adult hypertrophic pyloric stenosis; K27.3 Acute peptic ulcer, site unspecified, without hemorrhage or perforation; C25.9 Malignant neoplasm of pancreas, unspecified; E27.40 Unspecified adrenocortical insufficiency; I38 Endocarditis, valve unspecified; Z20.822 Contact with and (suspected) exposure to COVID-19; D63.1 Anemia in chronic kidney disease; E87.70 Fluid overload, unspecified; E78.5 Hyperlipidemia, unspecified; E11.22 Type 2 diabetes mellitus with diabetic chronic kidney disease; E11.649 Type 2 diabetes mellitus with hypoglycemia without coma; E89.0 Postprocedural hypothyroidism; I45.10 Unspecified right bundle-branch block; F17.200 Nicotine dependence, unspecified, uncomplicated; I48.0 Paroxysmal atrial fibrillation; I07.1 Rheumatic tricuspid insufficiency; I25.2 Old myocardial infarction; Z99.2 Dependence on renal dialysis; Z79.899 Other long term (current) drug therapy; Z90.49 Acquired absence of other specified parts of digestive tract; Z79.01 Long term (current) use of anticoagulants; Z68.24 Body mass index [BMI] 24.0-24.9, adult
CPT/HCPCS: 36415; 43239; 71045; 71250-TC; 73090; 74150-TC; 76536; 80048; 80053; 80202; 82024; 82272; 82533; 82948; 83525; 83540; 83550; 83690; 83880; 84100; 84436; 84439; 84443; 84484; 84681; 85007; 85025; 85027; 85610; 85651; 85730; 86301; 86480; 86886; 86900; 86901; 86920; 87040; 87081; 87186; 88305; 88312; 88313; 90935; 90937; 93005; 93306; 93312; 93971; 94640; 94664; 94760; 96365; 96375; 97110-GP; 97112-GP; 97116-GP; 97163-GP; 97530-GP; 99285; A9547; G0378; J0290; J0461; J0696; J1200; J1940; J2020; J2250; J2270; J2405; J2543; J3010; J3370; J7060; J7512; J7626; P9021; P9046